=== PATIENT | female | born 1990 | race Caucasian/White ===

== ENCOUNTER → 2016-09-24 | Outpatient (CLI) | payer MEDICAID ==
[~2016-09-24] MED LIST: DOCU-30 PO; IBUP-1222 PO; NIFE10CA2 PO; PREN1TAB69 PO; ZOLP10TA PO
== END | disposition home or self-care (01) ==
LOC: CFH 12:34
PROVIDERS: ATTEND Registered Nurse
DX: N63 Unspecified lump in breast (principal)
CPT/HCPCS: 76641; G0206

== ENCOUNTER 2017-10-22 07:20 | Emergency (ER) | payer MEDICAID ==
[~2017-10-22] VITALS: Ht 170.2 cm; Wt 84.3 kg
[~2017-10-22 07:20] MED LIST changes: +DOCU-131 PO; -DOCU-30 PO
[2017-10-22 07:21] VITALS: BP 128/73
[2017-10-22 08:07] LABS: BASOPHILS # (AUTO) 0.03 x10^3/uL (0-0.1); BASOPHILS % (AUTO) 0 % (0-1); EOSINOPHILS # (AUTO) 0.06 x10^3/uL (0-0.4); EOSINOPHILS % (AUTO) 1 % (1-7); LYMPHOCYTES # (AUTO) 1.27 x10^3/uL (1-3.4); LYMPHOCYTES % (AUTO) 14 % (22-44); MD NO; MEAN CORPUSCULAR HEMOGLOBIN 28.5 pg (27.0-34.8); MEAN CORPUSCULAR HGB CONC 33.4 g/dL (32.4-35.8); MEAN CORPUSCULAR VOLUME 85.3 fL (80-100); MEAN PLATELET VOLUME 8.5 fL (7.4-10.4); MONOCYTES # (AUTO) 0.32 x10^3/uL (0.2-0.8); MONOCYTES % (AUTO) 4 % (2-9); NEUTROPHILS # (AUTO) 7.09 x10^3/uL (1.8-6.8); NEUTROPHILS % (AUTO) 81 % (42-75); PLATELET COUNT 217 x10^3/uL (130-400); RED BLOOD COUNT 4.07 x10^6/uL (3.82-5.3); RED CELL DISTRIBUTION WIDTH 13.9 % (9.6-15.2)
== END 2017-10-22 09:44 | disposition home or self-care (01) ==
LOC: ED 09:25
DX: S80.11XA Contusion of right lower leg, initial encounter (principal); I82.412 Acute embolism and thrombosis of left femoral vein; X58.XXXA Exposure to other specified factors, initial encounter; Y93.89 Activity, other specified; Y99.8 Other external cause status; Y92.89 Other specified places as the place of occurrence of the external cause
CPT/HCPCS: 36415; 85025; 99285

== ENCOUNTER 2018-07-09 00:02 | Emergency (ER) | payer MEDICAID, OTHER ==
[~2018-07-09] VITALS: Ht 170.2 cm; Wt 79.0 kg
[~2018-07-09 00:02] MED LIST changes: -NIFE10CA2 PO; +NIFE10CA49 PO
[2018-07-09 00:05] VITALS: BP 127/83
[2018-07-09] MEDS ORDERED: DIPH,PERTUSS(ACELL),TET VAC/PF 0.5 ML IM-VACC ONE ×2 (00:21→00:30)
[2018-07-09] MEDS ORDERED: LIDOCAINE-MPF 1%, 5ML ONE (00:22)
[2018-07-09] MEDS ORDERED: LIDOCAINE-MPF 1%, 5ML INFIL ONE (00:30)
== END 2018-07-09 01:23 | disposition home or self-care (01) ==
LOC: ED 01:17
DX: S01.511A Laceration without foreign body of lip, initial encounter (principal); Z88.0 Allergy status to penicillin; W01.0XXA Fall on same level from slipping, tripping and stumbling without subsequent striking against object, initial encounter; Y93.89 Activity, other specified; Y92.098 Other place in other non-institutional residence as the place of occurrence of the external cause; Y99.8 Other external cause status
CPT/HCPCS: 12051; 90471; 90715; 99284

== ENCOUNTER 2018-07-09 11:28 | Emergency (ER) | payer OTHER ==
[~2018-07-09] VITALS: Ht 170.2 cm; Wt 76.7 kg
[2018-07-09 11:33] VITALS: BP 145/105
--- NOTE | 2018-07-09 12:07 | NUR ---
Patient/Caregiver given discharge instructions and they have confirmed that they understand the instructions. Patient ambulatory with steady gait.
== END 2018-07-09 12:16 | disposition home or self-care (01) ==
LOC: ED 12:10
DX: S01.511D Laceration without foreign body of lip, subsequent encounter (principal); X58.XXXD Exposure to other specified factors, subsequent encounter
CPT/HCPCS: 99281